=== PATIENT | male | born 1975 | race Caucasian/White ===

== ENCOUNTER → 2016-04-16 | Outpatient (CLI) | payer OTHER ==
[~2016-04-16] MED LIST: BUSPAR 30MG30 MG/TAB PO; EFFEXOR-XR150 MG PO; FLONASEALLERGY NS; LIORESAL20 MG PO; PRILOSEC10 MG PO
== END ==
LOC: MC.RAD 12:51
DX: N62 Hypertrophy of breast (principal)

== ENCOUNTER 2016-11-20 00:51 | Emergency (ER) | payer OTHER ==
[~2016-11-20] VITALS: Ht 182.9 cm; Wt 125.0 kg
[2016-11-20 00:52] VITALS: BP 129/65; TEMP 97.5
[2016-11-20] MEDS ORDERED: LIORESAL20 MG PO (01:24)
[2016-11-20] MEDS ORDERED: BUSPAR 30MG30 MG/TAB PO (01:24)
[2016-11-20] MEDS ORDERED: EFFEXOR-XR150 MG PO (01:24)
[2016-11-20] MEDS ORDERED: FLONASEALLERGY NS (01:25)
[2016-11-20] MEDS ORDERED: PRILOSEC10 MG PO (01:25)
[2016-11-20 01:45] VITALS: PULSE 92
== END 2016-11-20 01:45 | disposition home or self-care (01) ==
LOC: COL.ER 00:51
DX: S91.311A Laceration without foreign body, right foot, initial encounter (principal); F32.9 Major depressive disorder, single episode, unspecified; F43.10 Post-traumatic stress disorder, unspecified; K21.9 Gastro-esophageal reflux disease without esophagitis; W22.8XXA Striking against or struck by other objects, initial encounter; Y92.009 Unspecified place in unspecified non-institutional (private) residence as the place of occurrence of the external cause

== ENCOUNTER 2016-11-27 11:57 | Emergency (ER) | payer OTHER ==
[2016-11-27 12:01] VITALS: BP 138/90; PULSE 83; TEMP 97.9
== END 2016-11-27 12:05 | disposition home or self-care (01) ==
LOC: COL.ER 11:57
DX: S91.311D Laceration without foreign body, right foot, subsequent encounter (principal); X58.XXXD Exposure to other specified factors, subsequent encounter

== ENCOUNTER 2016-12-07 04:27 | Emergency (ER) | payer OTHER ==
[~2016-12-07] VITALS: Ht 182.9 cm; Wt 122.7 kg
[2016-12-07 05:12] LABS: BASO % 0.3 % (0.0-2.0); EOS # 0.2 (0.0-0.7); EOS % 1.8 % (0-4.0); GRAN # 5.5 (1.4-6.5); GRAN % 57.8 % (42.2-75.2); HEMATOCRIT 51.3 % (42.0-52.0); HEMOGLOBIN 17.1 g/dl (13.5-18.0); LYMPH % 31.2 % (20.0-51.0); MEAN CELL VOLUME 96 fl (80.0-100.0); MEAN CORPUSCULAR HEMOGLOBIN 32 pg (27.0-31.0); MEAN CORPUSCULAR HGB CONC 33 g/dl (33.0-37.0); MEAN PLATELET VOLUME 10.6 fl (7.4-10.4); MONO # 0.8 (0.1-0.6); MONO % 8.5 % (1.7-9.3); PLATELET COUNT 226 K/mm3 (130-400); RED BLOOD COUNT 5.36 M/mm3 (4.20-5.60); REDCELL DISTRIBUTION WIDTH-CV 13.6 % (11.5-14.5); WHITE BLOOD COUNT 9.5 K/mm3 (4.8-10.8)
[2016-12-07 05:26] LABS: ADJUSTED CALCIUM 9.5 mg/dL (8.4-10.2); ALBUMIN 4.3 gm/dL (3.5-5.0); BILIRUBIN,TOTAL 0.8 mg/dL (0.0-1.0); C-REACTIVE PROTEIN 0.8 mg/dL (0.0-0.9); CALCIUM 9.7 mg/dL (8.4-10.2); CREATININE, serum 1.15 mg/dL (0.66-1.25); POTASSIUM 3.6 mmol/L (3.4-5.0); TOTAL PROTEIN 7.7 gm/dL (6.4-8.2)
[2016-12-07 05:58] VITALS: TEMP 96.8
[2016-12-07 08:21] LABS: PH 8 (5-8); SQUAMOUS EPITHELIAL 0-2 /hpf; URINE APPEARANCE Clear; URINE BACTERIA None Seen /hpf; URINE BILIRUBIN Negative (NEGATIVE); URINE BLOOD Negative (NEGATIVE); URINE COLOR Yellow; URINE GLUCOSE Negative (NEGATIVE); URINE KETONE Negative (NEGATIVE); URINE UROBILINOGEN Negative (NEGATIVE); URINE WBC 0-2 /hpf
[2016-12-07 08:50] VITALS: BP 136/98; PULSE 75
== END 2016-12-07 08:58 | disposition home or self-care (01) ==
LOC: COL.ER 04:27
PROVIDERS: Emergency Medicine
DX: R10.13 Epigastric pain (principal); F41.9 Anxiety disorder, unspecified; F17.200 Nicotine dependence, unspecified, uncomplicated
CPT/HCPCS: J1170; J2405; J7030; Q9967

== ENCOUNTER 2017-03-14 02:12 | Observation (INO) | payer OTHER ==
[~2017-03-14] VITALS: Ht 182.9 cm; Wt 125.5 kg
[2017-03-14] MEDS ORDERED: RITALIN SR20 MG PO (12:37)
[2017-03-14] MEDS ORDERED: XANAX XR1 M1 PO ×2 (12:37→13:43)
[2017-03-14] MEDS ORDERED: RITALIN LA40 MG PO (13:45)
[2017-03-14] MEDS ORDERED: RITALIN 20M20 MG/TAB PO (13:46)
[2017-03-14] MEDS ORDERED: PRIL40 PO (13:49)
[2017-03-14] MEDS ORDERED: ALLEGRA 180MG180 MG PO (13:51)
[2017-03-14 14:22] VITALS: BP 127/84; PULSE 86; TEMP 97.9
[2017-03-14 16:04] VITALS: BP 112/62; PULSE 84; TEMP 98.7
[2017-03-14 20:28] VITALS: BP 133/81; PULSE 83; TEMP 97.9
[2017-03-14 23:24] VITALS: BP 111/68; PULSE 69; TEMP 97.7
[2017-03-15 05:25] VITALS: BP 138/79; PULSE 72; TEMP 97.7
[2017-03-15 08:09] VITALS: BP 144/101; PULSE 841; TEMP 97.9
[2017-03-15 11:39] VITALS: BP 142/95; PULSE 81; TEMP 98.2
[2017-03-15 15:56] VITALS: BP 135/88; PULSE 73; TEMP 98
[2017-03-15 20:35] VITALS: BP 152/98; PULSE 82; TEMP 98.1
[2017-03-16 01:25] VITALS: BP 123/70; PULSE 77; TEMP 97.4
[2017-03-16 05:39] VITALS: BP 135/93; PULSE 77; TEMP 97.3
[2017-03-16 08:04] VITALS: BP 125/72; PULSE 66; TEMP 98.2
[2017-03-16 11:47] VITALS: BP 125/65; PULSE 75; TEMP 98.4
[2017-03-16 15:05] VITALS: BP 125/65; PULSE 75; TEMP 98.4
== END 2017-03-16 16:20 ==
LOC: COL.ER 02:12 → MEDICAL 12:27
DX: R45.851 Suicidal ideations (principal); R45.4 Irritability and anger; R45.1 Restlessness and agitation; F43.10 Post-traumatic stress disorder, unspecified; F33.2 Major depressive disorder, recurrent severe without psychotic features; F41.0 Panic disorder [episodic paroxysmal anxiety]; Z88.0 Allergy status to penicillin; F52.0 Hypoactive sexual desire disorder; T43.215A Adverse effect of selective serotonin and norepinephrine reuptake inhibitors, initial encounter; F12.10 Cannabis abuse, uncomplicated; F14.10 Cocaine abuse, uncomplicated; F90.9 Attention-deficit hyperactivity disorder, unspecified type
CPT/HCPCS: G0378

== ENCOUNTER → 2017-11-13 | Emergency (ER) | payer OTHER ==
[~2017-11-13] MED LIST changes: +ALLEGRA 180MG180 MG PO; +CRUTCHES MC; +NORCO 325 MG-51 TAB PO; +PRIL40 PO; +RITALIN 20M20 MG/TAB PO; +RITALIN LA40 MG PO; +RITALIN SR20 MG PO; +XANAX XR1 M1 PO
== END ==
LOC: COL.ER 17:51
DX: Z72.9 Problem related to lifestyle, unspecified (principal)

== ENCOUNTER 2017-11-14 06:30 | Emergency (ER) | payer OTHER, MEDICAID ==
[~2017-11-14] VITALS: Ht 182.9 cm; Wt 118.2 kg
[~2017-11-14 06:30] MED LIST changes: -CRUTCHES MC; -NORCO 325 MG-51 TAB PO
[2017-11-14 06:35] VITALS: TEMP 98
[2017-11-14] MEDS ORDERED: NORCO 325 MG-51 TAB PO (06:51)
[2017-11-14] MEDS ORDERED: CRUTCHES MC (07:01)
[2017-11-14 07:22] VITALS: BP 138/78; PULSE 74
== END 2017-11-14 07:18 | disposition home or self-care (01) ==
LOC: COL.ER 06:30
DX: S89.91XA Unspecified injury of right lower leg, initial encounter (principal); Z88.0 Allergy status to penicillin; Z98.890 Other specified postprocedural states; Z79.51 Long term (current) use of inhaled steroids; X50.0XXA Overexertion from strenuous movement or load, initial encounter; Y92.009 Unspecified place in unspecified non-institutional (private) residence as the place of occurrence of the external cause

== ENCOUNTER → 2018-10-25 | Outpatient (CLI) | payer OTHER, MEDICAID ==
[~2018-10-25] MED LIST changes: +CRUTCHES MC; +NORCO 325 MG-51 TAB PO
== END ==
LOC: MC.RAD 08:29
DX: N62 Hypertrophy of breast (principal); N64.89 Other specified disorders of breast

== ENCOUNTER → 2018-10-26 | Outpatient (CLI) | payer OTHER, MEDICAID | LOC: COL.VAS 13:47 | DX: M79.89 Other specified soft tissue disorders (principal); Z96.651 Presence of right artificial knee joint ==